=== PATIENT | female | born 1955 | race Caucasian/White ===

== ENCOUNTER 2021-02-16 21:33 | Emergency (ER) | payer MEDICARE ==
[~2021-02-16] VITALS: Ht 167.6 cm; Wt 88.9 kg
== END 2021-02-16 23:01 | disposition home or self-care (01) ==
LOC: FSED 21:50
DX: I83.12 Varicose veins of left lower extremity with inflammation (principal); I83.11 Varicose veins of right lower extremity with inflammation; M79.89 Other specified soft tissue disorders; R07.89 Other chest pain; J44.9 Chronic obstructive pulmonary disease, unspecified
CPT/HCPCS: 71046; 93005; 99283

== ENCOUNTER 2021-03-05 12:16 | Outpatient (RCR) | payer MEDICARE | END 2021-03-15 | LOC: WCC 12:16 | PROVIDERS: ATTEND Internal Medicine Infectious Disease | DX: S81.801A Unspecified open wound, right lower leg, initial encounter (principal); S81.802A Unspecified open wound, left lower leg, initial encounter; S91.002A Unspecified open wound, left ankle, initial encounter; I87.8 Other specified disorders of veins; I87.9 Disorder of vein, unspecified; R60.0 Localized edema; L30.8 Other specified dermatitis; J44.9 Chronic obstructive pulmonary disease, unspecified ==

== ENCOUNTER → 2021-03-13 | Outpatient (CLI) | payer MEDICARE | LOC: CARD 08:29 | PROVIDERS: ATTEND Internal Medicine Infectious Disease | DX: S81.802A Unspecified open wound, left lower leg, initial encounter (principal); I87.1 Compression of vein | CPT/HCPCS: 93922; 93925; 93970 ==

== ENCOUNTER 2021-04-06 10:04 | Outpatient (RCR) | payer MEDICARE ==
[~2021-04-06 10:04] MED LIST: CLOTRIMAZOLE/BETAMETHASONE 45 GM CR TP ONE; TRIAMCINOLONE ACET 0.1% CREAM 15 GM TUBE ONE
== END 2021-04-15 ==
LOC: WCC 10:04
PROVIDERS: ATTEND Internal Medicine Infectious Disease
DX: S81.801A Unspecified open wound, right lower leg, initial encounter (principal); S81.802A Unspecified open wound, left lower leg, initial encounter; S91.002A Unspecified open wound, left ankle, initial encounter; R60.0 Localized edema; L30.8 Other specified dermatitis; I87.8 Other specified disorders of veins; I87.9 Disorder of vein, unspecified; J44.9 Chronic obstructive pulmonary disease, unspecified

== ENCOUNTER 2021-04-30 11:15 | Outpatient (RCR) | payer MEDICARE | END 2021-05-15 | LOC: WCC 11:15 | PROVIDERS: ATTEND Internal Medicine Infectious Disease | DX: S81.801A Unspecified open wound, right lower leg, initial encounter (principal); S81.802A Unspecified open wound, left lower leg, initial encounter; S91.002A Unspecified open wound, left ankle, initial encounter; I87.9 Disorder of vein, unspecified; I87.8 Other specified disorders of veins; R60.0 Localized edema; L30.8 Other specified dermatitis; J44.9 Chronic obstructive pulmonary disease, unspecified ==

== ENCOUNTER 2021-06-04 10:39 | Outpatient (RCR) | payer MEDICARE ==
[~2021-06-04 10:39] MED LIST changes: -CLOTRIMAZOLE/BETAMETHASONE 45 GM CR TP ONE
== END 2021-06-15 ==
LOC: WCC 10:39
PROVIDERS: ATTEND Internal Medicine Infectious Disease
DX: S81.801A Unspecified open wound, right lower leg, initial encounter (principal); S81.802A Unspecified open wound, left lower leg, initial encounter; S91.002A Unspecified open wound, left ankle, initial encounter; I87.8 Other specified disorders of veins; I87.9 Disorder of vein, unspecified; R60.0 Localized edema; L30.8 Other specified dermatitis; J44.9 Chronic obstructive pulmonary disease, unspecified

== ENCOUNTER 2021-08-10 11:13 | Outpatient (RCR) | payer MEDICARE | END 2021-08-13 | LOC: WCC 11:13 | PROVIDERS: ATTEND Internal Medicine Infectious Disease | DX: L98.8 Other specified disorders of the skin and subcutaneous tissue (principal); L30.8 Other specified dermatitis; R60.0 Localized edema; I87.9 Disorder of vein, unspecified; I87.8 Other specified disorders of veins; J44.9 Chronic obstructive pulmonary disease, unspecified ==

== ENCOUNTER 2021-08-31 09:28 | Outpatient (RCR) | payer MEDICARE ==
[~2021-08-31 09:28] MED LIST changes: +BACITRACIN/POLYMYXIN 30 GM OINT ONE; +FLUOCINONIDE 0.05% 1 EA/15 GM TUBE ONE; +MINERAL OIL/PETROLAT/GLYCERI 2OZ CRM ONE; -TRIAMCINOLONE ACET 0.1% CREAM 15 GM TUBE ONE
== END 2021-09-13 ==
LOC: WCC 09:28
PROVIDERS: ATTEND Internal Medicine Infectious Disease
DX: I87.8 Other specified disorders of veins (principal); I87.9 Disorder of vein, unspecified; J44.9 Chronic obstructive pulmonary disease, unspecified; L30.8 Other specified dermatitis; L98.8 Other specified disorders of the skin and subcutaneous tissue; R60.0 Localized edema

== ENCOUNTER → 2021-11-22 | Day surgery (SDC) | payer MEDICARE ==
[2021-11-19 09:02] LABS: BASOPHILS # (AUTO) 0.1 (0.0-0.1); BASOPHILS % 1.3 % (0.0-1.0); EOSINOPHILS # (AUTO) 0.5 (0.0-0.4); EOSINOPHILS % 6.3 % (0.0-6.0); LYMPHOCYTES # (AUTO) 2.2 (1.0-3.2); LYMPHOCYTES % 25.3 % (18.0-39.1); MEAN CORPUSCULAR HEMOGLOBIN 30.2 pg (28-32); MEAN CORPUSCULAR HGB CONC 31.8 g/dL (31-35); MONOCYTES # (AUTO) 0.7 (0.2-0.8); MONOCYTES % 7.6 % (4.4-11.3); NEUTROPHILS # (AUTO) 5.1 (2.1-6.9); NEUTROPHILS % 59.1 % (38.7-80.0); PLATELET COUNT 264 x10e3/uL (140-360); RED BLOOD COUNT 4.63 x10e6/uL (3.6-5.1); RED CELL DISTRIBUTION WIDTH 13.7 % (11.7-14.4)
[~2021-11-22] MED LIST changes: +ALENDRONATE SOD70 MG; -BACITRACIN/POLYMYXIN 30 GM OINT ONE; +BREO ELLIPTA 21 EACH INH; +FENTANYL CITRATE/PF 100MCG/2 ML INJ ONE; -FLUOCINONIDE 0.05% 1 EA/15 GM TUBE ONE; +HYOSCYAMINE SULFATE 0.5 MG/ML INJ ONE; +LIDOCAINE HCL 2% LOCAL INJ 5 ML SDV VIAL INJ ONE; +MIDAZOLAM HCL 2 MG/2 ML VIAL ONE; -MINERAL OIL/PETROLAT/GLYCERI 2OZ CRM ONE; +MINOCYCLINE HCL50 MG PO; +OS-CAL 500+D T1 EACH PO; +PROPOFOL IV EMULSION 10 MG/ML 20 ML VIAL ONE; +PROVENTIL HFA6.7 GM INH
[2021-11-22 09:45] VITALS: BP 117/82
== END | disposition home or self-care (01) ==
LOC: OR 06:08
PROVIDERS: ATTEND Internal Medicine Gastroenterology
DX: Z12.11 Encounter for screening for malignant neoplasm of colon (principal); K63.5 Polyp of colon; K29.70 Gastritis, unspecified, without bleeding; B96.81 Helicobacter pylori [H. pylori] as the cause of diseases classified elsewhere; K22.2 Esophageal obstruction; K20.90 Esophagitis, unspecified without bleeding; K57.30 Diverticulosis of large intestine without perforation or abscess without bleeding; K64.8 Other hemorrhoids; Z71.3 Dietary counseling and surveillance; B15.9 Hepatitis A without hepatic coma; J44.9 Chronic obstructive pulmonary disease, unspecified; I49.8 Other specified cardiac arrhythmias; M81.0 Age-related osteoporosis without current pathological fracture; F41.9 Anxiety disorder, unspecified; Z71.89 Other specified counseling; Z88.6 Allergy status to analgesic agent; Z88.0 Allergy status to penicillin; Z88.8 Allergy status to other drugs, medicaments and biological substances; Z01.810 Encounter for preprocedural cardiovascular examination; Z01.812 Encounter for preprocedural laboratory examination; Z20.822 Contact with and (suspected) exposure to COVID-19; Z79.899 Other long term (current) drug therapy; Z68.32 Body mass index [BMI] 32.0-32.9, adult; Z80.0 Family history of malignant neoplasm of digestive organs
CPT/HCPCS: 36415; 43239; 43450; 45385; 85025; 93005; C9113; J1980; J2001; J2250; J2704; J3010; U0002; 45378